=== PATIENT | male | born 1955 | race Caucasian/White ===

== ENCOUNTER 2018-03-11 12:52 | Inpatient (IN) | payer OTHER ==
[~2018-03-11] VITALS: Ht 180.3 cm; Wt 56.8 kg
[2018-03-11] MEDS ORDERED: LEVO125 PO (12:59)
[2018-03-11] MEDS ORDERED: OLAN5TAB2 PO (12:59)
[2018-03-11] MEDS ORDERED: SERT50TA12 PO (12:59)
[2018-03-11] MEDS ORDERED: LOSA25TA41 PO (12:59)
[2018-03-11] MEDS ORDERED: PRED1 PO (12:59)
[2018-03-11 14:00] LABS: BASOPHILS % (AUTO) 0.5 % (0.0-2.0); EOSINOPHILS % (AUTO) 0 % (1.0-6.0); HEMATOCRIT 38.4 % (41-53); HEMOGLOBIN 12.9 g/dL (13.5-17.5); LYMPHOCYTES # (AUTO) 0.6 K/uL (1.0-4.8); LYMPHOCYTES % (AUTO) 2.6 % (22.0-44.0); MEAN CORPUSCULAR HGB CONC 33.6 G/dL (31.0-37.0); MEAN CORPUSCULAR VOLUME 92 fL (80-100); MONOCYTES # (AUTO) 0.7 K/uL (0.1-1.0); NEUTROPHILS # (AUTO) 21.3 K/uL (1.8-7.7); PLATELET COUNT (AUTO) 177 K/uL (150-450); RED BLOOD CELL COUNT(AUTO) 4.17 MIL/uL (4.50-5.90); RED CELL DISTRIBUTION WIDTH 15.2 % (11.5-14.5)
[2018-03-11 14:04] LABS: NEUTROPHILS % (AUTO) 93.9 % (40.0-70.0)
[2018-03-11] MEDS ORDERED: SODIUM CHLORIDE 0.9% 1,000 ML IV ONE ×3 (14:08→20:00)
[2018-03-11 14:12] LABS: ANION GAP 13 mmol/L (8-16); CALCIUM, TOTAL 8.2 mg/dL (8.8-10.5); CARBON DIOXIDE 21 mmol/L (22-29); CHLORIDE 102 mmol/L (98-107); GLOMERULAR FILTR. RATE CALC 38 mL/min (>60); GLUCOSE,RANDOM 149 mg/dL (70-110); POTASSIUM 4.5 mmol/L (3.5-5.1); SODIUM SERUM 136 mmol/L (136-145); UREA NITROGEN, BLOOD 37 mg/dL (7-18)
[2018-03-11 14:18] LABS: ALANINE AMINOTRANSFERASE 97 U/L (12-78); ALBUMIN 2.3 g/dL (3.4-5.0); ALKALINE PHOSPHATASE 115 U/L (46-116); ASPARTATE AMINOTRANSFERASE 86 U/L (15-37); BILIRUBIN,TOTAL 1.2 mg/dL (0.1-1.0); LIPASE 79 U/L (73-393); TOTAL PROTEIN, SERUM 6.8 g/dL (6.4-8.2)
[2018-03-11] MEDS ORDERED: SODIUM CHLORIDE 0.9% 1,650 ML IV ONE (15:30)
[2018-03-11] MEDS ORDERED: PIPERACILLIN/TAZO 3.375 GM/D5W 50 ML IV ONE (15:30)
[2018-03-11] MEDS ORDERED: ROCURONIUM BROMIDE 10 MG/ML 5 ML VIAL ONE (15:54)
[2018-03-11] MEDS ORDERED: RAPID SEQUENCE KIT [RSI] 1 EACH KIT ONE (15:54)
[2018-03-11] MEDS ORDERED: DOPamine HCL 400 MG/D5%-WATER 250 ML IV ONE (15:55)
[2018-03-11 16:23] LABS: ABG A-A DIFF O2 521.2 mmHg (10-20.0); ABG BASE EXCESS -6.8 mmol/L (-2.0-3.0); ABG CARBOXYHEMOGLOBIN 0.9 % (0.0-1.5); ABG HCO3 21.1 mmol/L (22.0-26.0); ABG METHEMOGLOBIN 0.3 % (0.0-1.5); ABG OXYGEN CONTENT 18.3 mL/dL (15.0-23.0); ABG OXYGEN SATURATION 99.4 % (95.0-98.0); ABG OXYHEMOGLOBIN 98.2 % (94.0-100.0); ABG PCO2 16 mmHg (35-45); ABG PH 7.584 (7.35-7.450); O2 DEVICE,BLOOD GAS NON REBREATHER (ROOM AIR); PO2, ARTERIAL BG 175.6 mmHg (79.0-87.0); SITE, BLOOD GAS RT FEMORAL; SOURCE, BLOOD GAS ARTERIAL; TEMPERATURE, FAHRENHEIT, BG 98.6 FAHREN (96.0-98.6)
[2018-03-11 16:50] LABS: APPEARANCE,URINE TURBID (CLEAR); GLUCOSE, URINE (UA) NEGATIVE (NEGATIVE); KETONES,URINE NEGATIVE (NEGATIVE); LEUKOCYTE ESTERASE ,URINE LARGE (NEGATIVE); NITRATE,URINE NEGATIVE (NEGATIVE); OCCULT BLOOD,URINE LARGE (NEGATIVE); PROTEIN,URINE POS 1+ (NEGATIVE)
[2018-03-11 16:52] LABS: BILIRUBIN,URINE PRELIM. POSITIVE (NEGATIVE)
[2018-03-11 16:57] LABS: RBC,URINE 26-50 /HPF (0-2)
[2018-03-11 16:58] LABS: BACTERIA,URINE Many /HPF (None Seen); SQUAMOUS EPITHELIAL CELL,UR Moderate /LPF (None Seen); WBC,URINE 51-100 /HPF (0-5)
[2018-03-11] MEDS ORDERED: ZOLPIDEM TARTRATE 5 MG TABLET PO PRN (19:45)
[2018-03-11] MEDS ORDERED: ONDANSETRON HCL 4 MG/2 ML VIAL IVP PRN (19:45)
[2018-03-11] MEDS ORDERED: ACETAMINOPHEN 325 MG TABLET PO PRN (19:45)
[2018-03-11] MEDS ORDERED: HYDROCODONE/ACETAMINOPHEN 5-325 MG TABLET PO PRN (19:45)
[2018-03-11] MEDS ORDERED: 0.9% SODIUM CHLORIDE 10 ML SYRINGE IVP PRN (19:45)
[2018-03-11] MEDS: PANTOPRAZOLE SODIUM 40 MG/VIAL IVP SCH (20:07)
[2018-03-11] MEDS: OLANZapine 5 MG TABLET PO SCH (20:09)
[2018-03-11] MEDS: HEPARIN SODIUM,PORCINE 5,000 UNITS/ML VIAL SQ SCH (21:26)
[2018-03-11] MEDS: PIPERACILLIN SODIUM/TAZOBACTAM 2.25 GM in DEXTROSE 5%-WATER 50 ML IV SCH (21:58)
[2018-03-12] MEDS: PIPERACILLIN SODIUM/TAZOBACTAM 2.25 GM in DEXTROSE 5%-WATER 50 ML IV SCH ×4 (03:40→21:39)
[2018-03-12 08:00] VITALS: BP 113/65
[2018-03-12] MEDS: OLANZapine 5 MG TABLET PO SCH (08:45)
[2018-03-12] MEDS: PANTOPRAZOLE SODIUM 40 MG/VIAL IVP SCH (08:45)
[2018-03-12] MEDS: HEPARIN SODIUM,PORCINE 5,000 UNITS/ML VIAL SQ SCH ×2 (08:46→21:35)
[2018-03-12] MEDS: LOSARTAN POTASSIUM 25 MG TABLET PO SCH (09:00)
[2018-03-12 09:17] LABS: BASOPHILS % (AUTO) 0.2 % (0.0-2.0); EOSINOPHILS % (AUTO) 0.2 % (1.0-6.0); HEMATOCRIT 39.1 % (41-53); HEMOGLOBIN 13.2 g/dL (13.5-17.5); LYMPHOCYTES # (AUTO) 0.6 K/uL (1.0-4.8); LYMPHOCYTES % (AUTO) 3.3 % (22.0-44.0); MEAN CORPUSCULAR HEMOGLOBIN 31.6 pg (26.0-34.0); MEAN CORPUSCULAR HGB CONC 33.7 G/dL (31.0-37.0); MEAN CORPUSCULAR VOLUME 94 fL (80-100); MONOCYTES # (AUTO) 0.8 K/uL (0.1-1.0); MONOCYTES % (AUTO) 4.4 % (2.0-9.0); NEUTROPHILS # (AUTO) 16.9 K/uL (1.8-7.7); PLATELET COUNT (AUTO) 133 K/uL (150-450); RED BLOOD CELL COUNT(AUTO) 4.16 MIL/uL (4.50-5.90); RED CELL DISTRIBUTION WIDTH 15.7 % (11.5-14.5)
[2018-03-12 09:20] LABS: ALBUMIN 2.2 g/dL (3.4-5.0); BILIRUBIN,TOTAL 1.1 mg/dL (0.1-1.0); CALCIUM, TOTAL 6.9 mg/dL (8.8-10.5); CREATININE 1.49 mg/dL (0.60-1.30); MAGNESIUM 2.1 mg/dL (1.80-2.40); POTASSIUM 4.2 mmol/L (3.5-5.1); TOTAL PROTEIN, SERUM 5.9 g/dL (6.4-8.2)
[2018-03-12 09:30] VITALS: BP 113/65
[2018-03-12] MEDS ORDERED: SODIUM CHLORIDE 0.9% 250 ML IV ONE ×2 (09:31→23:37)
[2018-03-12] MEDS: LEVOTHYROXINE SODIUM 125 MCG TABLET PO SCH (09:38)
[2018-03-12] MEDS: SERTRALINE HCL 50 MG TABLET PO SCH (09:42)
[2018-03-12 09:52] LABS: NEUTROPHILS % (AUTO) 91.9 % (40.0-70.0)
[2018-03-12 12:00] VITALS: BP 97/48
[2018-03-12 16:00] VITALS: BP 122/64
[2018-03-12 20:00] VITALS: BP 105/61
[2018-03-13] VITALS (7 sets, daily range): BP systolic 103–158; BP diastolic 53–76
[2018-03-13] MEDS: PIPERACILLIN SODIUM/TAZOBACTAM 2.25 GM in DEXTROSE 5%-WATER 50 ML IV SCH ×3 (04:00→16:21)
[2018-03-13] MEDS: LEVOTHYROXINE SODIUM 125 MCG TABLET PO SCH (06:46)
[2018-03-13] MEDS: OLANZapine 5 MG TABLET PO SCH (08:07)
[2018-03-13] MEDS: SERTRALINE HCL 50 MG TABLET PO SCH (08:07)
[2018-03-13] MEDS: LOSARTAN POTASSIUM 25 MG TABLET PO SCH (08:08)
[2018-03-13] MEDS: PANTOPRAZOLE SODIUM 40 MG/VIAL IVP SCH (08:08)
[2018-03-13] MEDS: HEPARIN SODIUM,PORCINE 5,000 UNITS/ML VIAL SQ SCH ×2 (08:08→20:30)
[2018-03-13] MEDS: LEVOFLOXACIN 250 MG TABLET PO SCH (17:39)
[2018-03-13] MEDS: VANCOMYCIN HCL 125 MG/2.5 ML SOLUTION ORAL.SYG PO SCH (19:20)
[2018-03-13 19:40] LABS: C.DIFF GDH ANTIGEN, Stool Negative (Negative); C.DIFF TOXINS A&B, Stool Negative (Negative)
[2018-03-14] MEDS: VANCOMYCIN HCL 125 MG/2.5 ML SOLUTION ORAL.SYG PO SCH ×4 (00:27→17:42)
[2018-03-14 04:14] LABS: GLUCOMETER DEV NAME(LOC) 6N.2; GLUCOSE,POINT OF CARE 128 MG/DL (70-110)
[2018-03-14 05:08] VITALS: BP 96/100
[2018-03-14] MEDS: LEVOTHYROXINE SODIUM 125 MCG TABLET PO SCH (06:10)
[2018-03-14 06:26] LABS: CALCIUM, TOTAL 7.7 mg/dL (8.8-10.5); CREATININE 1.34 mg/dL (0.60-1.30); POTASSIUM 3.6 mmol/L (3.5-5.1)
[2018-03-14 06:54] LABS: GLUCOMETER DEV NAME(LOC) 6N.1; GLUCOSE,POINT OF CARE 117 MG/DL (70-110)
[2018-03-14 07:48] VITALS: BP 109/67
[2018-03-14 08:15] LABS: BASOPHILS % (AUTO) 0.8 % (0.0-2.0); EOSINOPHILS % (AUTO) 0.3 % (1.0-6.0); HEMATOCRIT 34.9 % (41-53); LYMPHOCYTES # (AUTO) 0.8 K/uL (1.0-4.8); LYMPHOCYTES % (AUTO) 7.1 % (22.0-44.0); MEAN CORPUSCULAR HEMOGLOBIN 31.9 pg (26.0-34.0); MEAN CORPUSCULAR HGB CONC 34.5 G/dL (31.0-37.0); MEAN CORPUSCULAR VOLUME 93 fL (80-100); MONOCYTES # (AUTO) 0.7 K/uL (0.1-1.0); MONOCYTES % (AUTO) 6.6 % (2.0-9.0); NEUTROPHILS # (AUTO) 9.2 K/uL (1.8-7.7); PLATELET COUNT (AUTO) 134 K/uL (150-450); RED BLOOD CELL COUNT(AUTO) 3.77 MIL/uL (4.50-5.90); RED CELL DISTRIBUTION WIDTH 15.3 % (11.5-14.5)
[2018-03-14 08:16] LABS: NEUTROPHILS % (AUTO) 85.2 % (40.0-70.0)
[2018-03-14] MEDS: HEPARIN SODIUM,PORCINE 5,000 UNITS/ML VIAL SQ SCH ×2 (09:30→21:37)
[2018-03-14] MEDS: PANTOPRAZOLE SODIUM 40 MG/VIAL IVP SCH (09:30)
[2018-03-14] MEDS: LOSARTAN POTASSIUM 25 MG TABLET PO SCH (09:30)
[2018-03-14] MEDS: SERTRALINE HCL 50 MG TABLET PO SCH (09:30)
[2018-03-14] MEDS: OLANZapine 5 MG TABLET PO SCH (09:30)
[2018-03-14] MEDS: LEVOFLOXACIN 250 MG TABLET PO SCH (09:31)
[2018-03-14 11:51] VITALS: BP 107/64
[2018-03-14 15:41] VITALS: BP 129/70
[2018-03-14 20:17] VITALS: BP 106/65
[2018-03-14] MEDS: MUPIROCIN CALCIUM 2% 22 GM OINTMENT NASAL SCH (21:37)
[2018-03-14 23:22] VITALS: BP 107/64
[2018-03-15] MEDS: VANCOMYCIN HCL 125 MG/2.5 ML SOLUTION ORAL.SYG PO SCH ×2 (00:57→06:07)
[2018-03-15 01:04] LABS: GLUCOMETER DEV NAME(LOC) 6N.2; GLUCOSE,POINT OF CARE 107 MG/DL (70-110)
[2018-03-15 05:04] VITALS: BP 98/69
[2018-03-15] MEDS: LEVOTHYROXINE SODIUM 125 MCG TABLET PO SCH (06:07)
[2018-03-15 06:45] LABS: CALCIUM, TOTAL 8.3 mg/dL (8.8-10.5); CREATININE 1.49 mg/dL (0.60-1.30); PHOSPHORUS 3.7 mg/dL (2.5-4.9); POTASSIUM 3.8 mmol/L (3.5-5.1)
[2018-03-15 06:45] LABS: GLUCOMETER DEV NAME(LOC) 6N.1; GLUCOSE,POINT OF CARE 135 MG/DL (70-110)
[2018-03-15 06:51] LABS: BASOPHILS % (AUTO) 0.5 % (0.0-2.0); EOSINOPHILS % (AUTO) 0.2 % (1.0-6.0); HEMATOCRIT 38.1 % (41-53); HEMOGLOBIN 12.6 g/dL (13.5-17.5); LYMPHOCYTES # (AUTO) 0.8 K/uL (1.0-4.8); LYMPHOCYTES % (AUTO) 6.7 % (22.0-44.0); MEAN CORPUSCULAR HEMOGLOBIN 31.4 pg (26.0-34.0); MEAN CORPUSCULAR HGB CONC 33.1 G/dL (31.0-37.0); MEAN CORPUSCULAR VOLUME 95 fL (80-100); MONOCYTES # (AUTO) 0.8 K/uL (0.1-1.0); PLATELET COUNT (AUTO) 157 K/uL (150-450); RED BLOOD CELL COUNT(AUTO) 4.01 MIL/uL (4.50-5.90); RED CELL DISTRIBUTION WIDTH 15.8 % (11.5-14.5)
[2018-03-15 06:57] LABS: NEUTROPHILS % (AUTO) 86.6 % (40.0-70.0)
[2018-03-15 07:28] VITALS: BP 100/69
[2018-03-15 08:36] LABS: HEMATOCRIT 34.2 % (41-53); HEMOGLOBIN 11.6 g/dL (13.5-17.5)
[2018-03-15] MEDS: PANTOPRAZOLE SODIUM 40 MG/VIAL IVP SCH (08:39)
[2018-03-15] MEDS: MUPIROCIN CALCIUM 2% 22 GM OINTMENT NASAL SCH (08:39)
[2018-03-15] MEDS: HEPARIN SODIUM,PORCINE 5,000 UNITS/ML VIAL SQ SCH (09:00)
[2018-03-15] MEDS: PANTOPRAZOLE SODIUM 80 MG in SODIUM CHLORIDE 0.9% 100 ML IV SCH ×2 (09:20→18:09)
[2018-03-15] MEDS ORDERED: BARIUM SULFATE 0.1% SUSPENSION 450 ML BOTTLE ONE (09:54)
[2018-03-15] MEDS ORDERED: SODIUM CHLORIDE 0.9% 500 ML IV ONE (10:28)
[2018-03-15] MEDS: MetroNIDAZOLE 500 MG/NACL 100 ML IV SCH ×2 (10:31→17:13)
[2018-03-15 11:17] VITALS: BP 114/62
[2018-03-15] MEDS: LEVOFLOXACIN 250 MG TABLET PO SCH (15:09)
[2018-03-15] MEDS: MULTIVITAMINS WITH MINERALS, THERAPEUTIC TABLET PO SCH (15:09)
[2018-03-15] MEDS: OLANZapine 5 MG TABLET PO SCH (15:11)
[2018-03-15] MEDS: SERTRALINE HCL 50 MG TABLET PO SCH (15:11)
[2018-03-15] MEDS: LOSARTAN POTASSIUM 25 MG TABLET PO SCH (15:12)
[2018-03-15] MEDS ORDERED: BISACODYL 5 MG EC TABLET PO ONE (15:15)
[2018-03-15 15:34] VITALS: BP 91/54
[2018-03-15] MEDS ORDERED: PEG 3350/NA SULF,BICARB,CL/KCL 4000 ML SOLUTION PO ONE (17:00)
[2018-03-15 19:40] VITALS: BP 124/55
[2018-03-15 23:47] VITALS: BP 118/54
[2018-03-16] MEDS ORDERED: SODIUM CHLORIDE 0.9% 1,000 ML IV ONE ×3 (00:42→20:32)
[2018-03-16] MEDS: MUPIROCIN CALCIUM 2% 22 GM OINTMENT NASAL SCH ×3 (01:04→20:40)
[2018-03-16] MEDS: MetroNIDAZOLE 500 MG/NACL 100 ML IV SCH ×2 (02:20→09:09)
[2018-03-16 04:57] VITALS: BP 100/71
[2018-03-16] MEDS: PANTOPRAZOLE SODIUM 80 MG in SODIUM CHLORIDE 0.9% 100 ML IV SCH ×2 (05:57→15:00)
[2018-03-16] MEDS: LEVOTHYROXINE SODIUM 125 MCG TABLET PO SCH (06:04)
[2018-03-16 06:05] LABS: BASOPHILS % (AUTO) 0.2 % (0.0-2.0); EOSINOPHILS % (AUTO) 0.3 % (1.0-6.0); HEMATOCRIT 27.8 % (41-53); HEMOGLOBIN 9.5 g/dL (13.5-17.5); LYMPHOCYTES # (AUTO) 0.7 K/uL (1.0-4.8); LYMPHOCYTES % (AUTO) 7.4 % (22.0-44.0); MEAN CORPUSCULAR HEMOGLOBIN 31.4 pg (26.0-34.0); MEAN CORPUSCULAR HGB CONC 34.3 G/dL (31.0-37.0); MEAN CORPUSCULAR VOLUME 92 fL (80-100); MONOCYTES # (AUTO) 0.5 K/uL (0.1-1.0); MONOCYTES % (AUTO) 4.7 % (2.0-9.0); NEUTROPHILS # (AUTO) 8.7 K/uL (1.8-7.7); PLATELET COUNT (AUTO) 131 K/uL (150-450); RED BLOOD CELL COUNT(AUTO) 3.03 MIL/uL (4.50-5.90); RED CELL DISTRIBUTION WIDTH 15.3 % (11.5-14.5)
[2018-03-16 06:20] LABS: CALCIUM, TOTAL 7.5 mg/dL (8.8-10.5); CREATININE 1.63 mg/dL (0.60-1.30); POTASSIUM 3.5 mmol/L (3.5-5.1)
[2018-03-16 06:45] LABS: NEUTROPHILS % (AUTO) 87.4 % (40.0-70.0)
[2018-03-16] MEDS: LEVOFLOXACIN 250 MG TABLET PO SCH (07:53)
[2018-03-16] MEDS: MULTIVITAMINS WITH MINERALS, THERAPEUTIC TABLET PO SCH (07:53)
[2018-03-16] MEDS: SERTRALINE HCL 50 MG TABLET PO SCH (07:53)
[2018-03-16] MEDS: LOSARTAN POTASSIUM 25 MG TABLET PO SCH (07:53)
[2018-03-16] MEDS: OLANZapine 5 MG TABLET PO SCH (07:54)
[2018-03-16 08:00] VITALS: BP 107/65
[2018-03-16] MEDS ORDERED: LIDOCAINE/PF 2% 5 ML VIAL INJ ONE (12:00)
[2018-03-16] MEDS ORDERED: EPHEDrine SULFATE 50 MG/ML VIAL IM ONE (12:00)
[2018-03-16] MEDS ORDERED: PROPOFOL 1% 20 ML VIAL IVP ONE (12:00)
[2018-03-16] MEDS ORDERED: BISACODYL 10 MG RECTAL RECTAL SUPPOSITORY PR PRN (12:30)
[2018-03-16 13:16] LABS: INR 1.3 (0.9-1.1)
[2018-03-16 13:37] VITALS: BP 125/51
[2018-03-16 16:00] VITALS: BP 118/70
[2018-03-16 19:55] VITALS: BP 162/84
[2018-03-16] MEDS: POLYETHYLENE GLYCOL 3350 17 GM PACKET PO SCH (20:38)
[2018-03-16 23:47] VITALS: BP 155/55
[2018-03-17] MEDS: PANTOPRAZOLE SODIUM 80 MG in SODIUM CHLORIDE 0.9% 100 ML IV SCH ×2
[2018-03-17 05:21] VITALS: BP 125/57
[2018-03-17 06:25] LABS: BASOPHILS % (AUTO) 0.1 % (0.0-2.0); EOSINOPHILS % (AUTO) 1.3 % (1.0-6.0); HEMATOCRIT 23.5 % (41-53); HEMOGLOBIN 8.2 g/dL (13.5-17.5); LYMPHOCYTES # (AUTO) 0.4 K/uL (1.0-4.8); LYMPHOCYTES % (AUTO) 7.3 % (22.0-44.0); MEAN CORPUSCULAR HEMOGLOBIN 31.7 pg (26.0-34.0); MEAN CORPUSCULAR HGB CONC 34.8 G/dL (31.0-37.0); MEAN CORPUSCULAR VOLUME 91 fL (80-100); MONOCYTES # (AUTO) 0.2 K/uL (0.1-1.0); MONOCYTES % (AUTO) 3.8 % (2.0-9.0); NEUTROPHILS # (AUTO) 5.3 K/uL (1.8-7.7); PLATELET COUNT (AUTO) 107 K/uL (150-450); RED BLOOD CELL COUNT(AUTO) 2.58 MIL/uL (4.50-5.90); RED CELL DISTRIBUTION WIDTH 15.4 % (11.5-14.5)
[2018-03-17 06:36] LABS: ANION GAP 11 mmol/L (8-16); CALCIUM, TOTAL 7.3 mg/dL (8.8-10.5); CARBON DIOXIDE 21 mmol/L (22-29); CHLORIDE 117 mmol/L (98-107); CREATININE 1.15 mg/dL (0.60-1.30); GLOMERULAR FILTR. RATE CALC > 60 mL/min (>60); GLUCOSE,RANDOM 103 mg/dL (70-110); SODIUM SERUM 149 mmol/L (136-145); UREA NITROGEN, BLOOD 31 mg/dL (7-18)
[2018-03-17 06:39] LABS: POTASSIUM 2.9 mmol/L (3.5-5.1)
[2018-03-17 06:42] LABS: NEUTROPHILS % (AUTO) 87.5 % (40.0-70.0)
[2018-03-17 07:56] VITALS: BP 127/57
[2018-03-17] MEDS: POLYETHYLENE GLYCOL 3350 17 GM PACKET PO SCH (09:00)
[2018-03-17] MEDS: LOSARTAN POTASSIUM 25 MG TABLET PO SCH (09:00)
[2018-03-17] MEDS: LEVOTHYROXINE SODIUM 125 MCG TABLET PO SCH (09:00)
[2018-03-17] MEDS: MUPIROCIN CALCIUM 2% 22 GM OINTMENT NASAL SCH (09:01)
[2018-03-17] MEDS: MULTIVITAMINS WITH MINERALS, THERAPEUTIC TABLET PO SCH (09:01)
[2018-03-17] MEDS: SERTRALINE HCL 50 MG TABLET PO SCH (09:02)
[2018-03-17] MEDS: OLANZapine 5 MG TABLET PO SCH (09:02)
[2018-03-17] MEDS: LEVOFLOXACIN 250 MG TABLET PO SCH (09:02)
[2018-03-17] MEDS ORDERED: SODIUM CHLORIDE 0.9% 250 ML IV ONE (10:47)
[2018-03-17] MEDS ORDERED: POTASSIUM CHLORIDE 10% 40 MEQ/30 ML LIQUID UDCUP PO ONE ×2 (11:00→18:30)
[2018-03-17] MEDS ORDERED: SODIUM CHLORIDE 0.9% 500 ML IV ONE (11:24)
[2018-03-17 11:27] VITALS: BP 121/59
[2018-03-17] MEDS: POTASSIUM CHL 10 MEQ/WATER 50 ML IV SCH ×4 (11:29→16:23)
[2018-03-17 15:29] VITALS: BP 130/78
== END 2018-03-17 18:50 | disposition home or self-care (01) | DRG 720 ==
LOC: EMS 12:56 → ICU 03-12 07:03 → 6N 03-13 18:45
PROVIDERS: ADMIT Internal Medicine; ATTEND Internal Medicine
PROC: 0DJD8ZZ Inspection of Lower Intestinal Tract, Via Natural or Artificial Opening Endoscopic (ICD-10-PCS; principal; 2018-03-16 11:00)
DX: A41.9 Sepsis, unspecified organism (principal); E43 Unspecified severe protein-calorie malnutrition; F03.90 Unspecified dementia, unspecified severity, without behavioral disturbance, psychotic disturbance, mood disturbance, and anxiety; K62.6 Ulcer of anus and rectum; L89.90 Pressure ulcer of unspecified site, unspecified stage; E03.9 Hypothyroidism, unspecified; N39.0 Urinary tract infection, site not specified; I10 Essential (primary) hypertension; F32.9 Major depressive disorder, single episode, unspecified; Z16.24 Resistance to multiple antibiotics; Z74.01 Bed confinement status; G80.9 Cerebral palsy, unspecified; F41.9 Anxiety disorder, unspecified; E78.5 Hyperlipidemia, unspecified; K56.41 Fecal impaction; B96.89 Other specified bacterial agents as the cause of diseases classified elsewhere; Z68.1 Body mass index [BMI] 19.9 or less, adult
CPT/HCPCS: 74018; 74176; 82805; 83605; 83735; 84100; 84132; 85014; 85018; 87040; 87045; 87081; 87086; 87205; 87324; 87427; 87449; 92610; 93005; 96365; 97163; 97167; 99291; C9113; G0378; J1265; J1644; J2543; J2704; J3480; J3490; J7030; J7040; J7050; J7060